=== PATIENT | female | born 1950 | race Caucasian/White ===

== ENCOUNTER → 2016-08-24 | Outpatient (CLI) | payer BC ==
--- NOTE | 2016-08-24 16:53 | PCVCIMAG ---
APPROVED REPORT Study performed: 08/24/2016 14:11:35 EXAM: Comprehensive 2D, Doppler, and color-flow Echocardiogram Patient Location: Echo lab Status: routine Risk Factors: Cardiac Risk Factors: HTN, Hyperlipidemia, Diabetes (non-insulin) Indications Dizziness and Vertigo Dyspnea 2D Dimensions LVEF(%): 69.78 (>50%) IVSd: 8.20 (7-11mm)LVOT Diam: 18.34 (18-24mm) LVDd: 41.66 mm PWd: 7.58 (7-11mm)Ascending Ao: 30.11 (22-36mm) LVDs: 25.44 (25-40mm) Left Atrium: 26.52 (27-40mm) Aortic Root: 22.43 mm LV Single Plane 4CH: 56.59 % LV Single Plane 2CH: 60.55 %[place]'s LVEF: 58.57 % Biplane EF: 59.3 % Volumes Left Atrial Volume (Systole) Single Plane 4CH: 31.97 mLSingle Plane 2CH: 54.68 mL LA ESV Index: 21.00 mL/m2 Aortic Valve LVOT Max P.16 mmHg LVOT Max V: 0.74 m/s EUGENE Vmax: 1.72 cm2 Mitral Valve E/A Ratio: 0.6 MV Decel. Time: 159.33 ms MV E Max Christian.: 0.74 m/s MV A Christian.: 1.19 m/s IVRT: 62.28 ms TDI E/Lateral E': 12.33E/Medial E': 14.80 Medial E' Christian.: 0.05 m/s Lateral E' Christian.: 0.06 m/s Pulmonary Valve PV Peak Christian.: 1.03 m/sPV Peak Gr.: 4.27 mmHg Pulmonary Vein P Vein S: 0.97 m/sP Vein A: 0.51 m/s P Vein D: 0.34 m/sP Vein A Dur.: 121.1 msec P Vein S/D Ratio: 2.85 Tricuspid Valve TR Peak Christian.: 2.16 m/s TR Peak Gr.: 18.73 mmHg TV Vmax: 0.52 m/s Left Ventricle The left ventricle is normal size. There is normal LV segmental wall motion. There is normal left ventricular wall thickness. Left ventricular systolic function is normal. The left ventricular ejection fraction is within the normal range. LVEF is 55-60%. Grade I diastolic dysfunction Right Ventricle The right ventricle is normal size. The right ventricular systolic function is normal. Atria The left atrium size is normal. The right atrium size is normal. Aortic Valve The aortic valve is normal in structure. No aortic regurgitation is present. There is no aortic valvular stenosis. Mitral Valve The mitral valve is normal in structure. There is no mitral valve regurgitation noted. No evidence of mitral valve stenosis. Tricuspid Valve The tricuspid valve is normal in structure. Trace to mild tricuspid regurgitation with a PA pressure of 26mmHg.. Pulmonic Valve The pulmonary valve is normal in structure. There is no pulmonic valvular regurgitation. Great Vessels The aortic root is normal in size. The ascending aorta is normal in size. IVC is normal in size and collapses with >50% inspiration Pericardium There is no pericardial effusion. There is no pleural effusion. <Conclusion> Left ventricular systolic function is normal. There is normal LV segmental wall motion. LVEF 55-60%. Grade I diastolic dysfunction The aortic valve is normal in structure. No aortic regurgitation or stenosis The mitral valve is normal in structure. No mitral valve regurgitation Trace to mild tricuspid regurgitation with a PA pressure of 26mmHg. There is no pericardial effusion.
== END | disposition home or self-care (01) ==
LOC: PCVCIMAG 13:59
PROVIDERS: ATTEND Internal Medicine
DX: I34.0 Nonrheumatic mitral (valve) insufficiency (principal); I48.2 Chronic atrial fibrillation; E11.8 Type 2 diabetes mellitus with unspecified complications; I45.10 Unspecified right bundle-branch block; I45.2 Bifascicular block; E78.5 Hyperlipidemia, unspecified; Z90.49 Acquired absence of other specified parts of digestive tract; Z79.84 Long term (current) use of oral hypoglycemic drugs; Z79.899 Other long term (current) drug therapy
CPT/HCPCS: 36415; 80061; 93005; 93306; G0463